=== PATIENT | male | born 1960 | race Caucasian/White ===

== ENCOUNTER 2016-07-06 23:10 | Emergency (ER) | payer MEDICARE ==
[~2016-07-06 23:10] MED LIST: FENTANYL 25 MCG TP; METHADONE10 MG PO; NO HOME MEDICATIONS; PREDNISONE10 MG PO; PREDNISONE20 M1 PO; ZYRTEC10 MG PO
== END 2016-07-07 00:52 | disposition home or self-care (01) ==
LOC: ED 23:10
DX: M50.30 Other cervical disc degeneration, unspecified cervical region (principal); M54.10 Radiculopathy, site unspecified; G62.9 Polyneuropathy, unspecified
CPT/HCPCS: J1885; J2930

== ENCOUNTER 2016-07-31 12:43 | Emergency (ER) | payer MEDICARE ==
[2016-07-31] MEDS ORDERED: KETOROLAC10 MG PO (14:13)
[2016-07-31 14:22] VITALS: BP 114/57
== END 2016-07-31 14:17 | disposition home or self-care (01) ==
LOC: ED 12:43
DX: R07.9 Chest pain, unspecified (principal); M94.0 Chondrocostal junction syndrome [Tietze]; F17.210 Nicotine dependence, cigarettes, uncomplicated
CPT/HCPCS: J1885

== ENCOUNTER 2018-03-09 07:11 | Emergency (ER) | payer MEDICARE ==
[~2018-03-09] VITALS: Ht 180.3 cm; Wt 113.6 kg
[~2018-03-09 07:11] MED LIST changes: +KETOROLAC10 MG PO
[2018-03-09 08:19] LABS: EOS # 0.4 (0.04-0.40); EOS % 3.6 % (0.0-4.0); HEMATOCRIT 44.5 % (42.0-52.0); HEMOGLOBIN 14.7 g/dL (13.5-18.0); LYMPH# 2.9 (1.50-4.00); MEAN CELL VOLUME 92 fl (78-100); MEAN CORPUSCULAR HEMOGLOBIN 31 pg (27-31); MEAN CORPUSCULAR HGB CONC 33 g/dL (33-37); MONO # 1.2 (0.20-0.80); NEU # 7.4 (1.40-6.50); PLATELET COUNT 318 K/mm3 (130-400); RED BLOOD COUNT 4.82 M/mm3 (4.20-5.60); RED CELL DISTRIBUTION WIDTH 13.6 % (11.5-14.5); WHITE BLOOD COUNT 12.1 K/mm3 (4.8-10.8)
[2018-03-09 08:32] LABS: ALBUMIN 4.2 g/dL (3.5-5.0); ALT/SGPT 70 U/L (21-72); AST-SGOT 56 U/L (17-59); CARBON DIOXIDE 26 mmol/L (22-30); GLUCOSE 158 mg/dL (75-110); POTASSIUM 4.5 mmol/L (3.6-5.0); SODIUM 136 mmol/L (137-145); TOTAL BILIRUBIN 0.6 mg/dL (0.2-1.3); TOTAL PROTEIN 7.8 g/dL (6.3-8.2)
[2018-03-09 08:41] LABS: ALCOHOL IN-HOUSE < 10 mg/dL
[2018-03-09] MEDS ORDERED: VIBRAMYCIN HYC100 MG PO (09:36)
[2018-03-09] MEDS ORDERED: NORCO 325 MG-51 TA1 PO (09:36)
[2018-03-09 10:58] VITALS: BP 118/64
== END 2018-03-09 10:58 | disposition home or self-care (01) ==
LOC: ED 07:11
PROVIDERS: Nurse Practitioner Primary Care
DX: S91.331A Puncture wound without foreign body, right foot, initial encounter (principal); W45.0XXA Nail entering through skin, initial encounter; W18.41XA Slipping, tripping and stumbling without falling due to stepping on object, initial encounter; Y93.9 Activity, unspecified; Y92.89 Other specified places as the place of occurrence of the external cause; Y99.9 Unspecified external cause status; R07.89 Other chest pain
CPT/HCPCS: J1885

== ENCOUNTER 2019-11-10 12:32 | Emergency (ER) | payer MEDICARE ==
[~2019-11-10] VITALS: Ht 172.7 cm; Wt 130.9 kg
[~2019-11-10 12:32] MED LIST changes: +NORCO 325 MG-51 TA1 PO; +VIBRAMYCIN HYC100 MG PO
[2019-11-10 13:38] LABS: BASO # 0.1 (0.02-0.10); EOS # 0.5 (0.04-0.40); EOS % 3.7 % (0.0-4.0); HEMATOCRIT 45.6 % (42.0-52.0); HEMOGLOBIN 14.9 g/dL (13.5-18.0); LYMPH# 4.4 (1.50-4.00); MEAN CELL VOLUME 91 fl (78-100); MEAN CORPUSCULAR HEMOGLOBIN 30 pg (27-31); MEAN CORPUSCULAR HGB CONC 33 g/dL (33-37); MEAN PLATELET VOLUME 9.4 fl (7.4-10.4); MONO # 1.1 (0.20-0.80); NEU # 6.5 (1.40-6.50); PLATELET COUNT 304 K/mm3 (130-400); RED BLOOD COUNT 4.99 M/mm3 (4.20-5.60); RED CELL DISTRIBUTION WIDTH 13.5 % (11.5-14.5); WHITE BLOOD COUNT 12.6 K/mm3 (4.8-10.8)
[2019-11-10 13:43] LABS: ALBUMIN 3.9 g/dL (3.4-4.8)
[2019-11-10 13:44] LABS: SODIUM 141 mmol/L (136-145)
[2019-11-10 13:45] LABS: CALCIUM 9.3 mg/dL (8.3-10.5)
[2019-11-10 13:46] LABS: GLUCOSE 150 mg/dL (75-110); TOTAL PROTEIN 7.5 g/dL (6.2-8.1)
[2019-11-10 13:47] LABS: CARBON DIOXIDE 23 mmol/L (23-31)
[2019-11-10 13:48] LABS: TOTAL BILIRUBIN 0.3 mg/dL (0.2-1.2)
[2019-11-10 13:51] LABS: AST-SGOT 40 U/L (5-34)
[2019-11-10 13:52] LABS: ALT/SGPT 59 U/L (0-55)
[2019-11-10 14:09] LABS: D-DIMER 0.68 mg/L FEU (0.15-0.50)
[2019-11-10 14:12] LABS: TROPONIN-I < 0.03 ng/mL (<0.030)
[2019-11-10 16:25] VITALS: BP 166/82
== END 2019-11-10 16:25 | disposition home or self-care (01) ==
LOC: ED 12:32
PROVIDERS: Nurse Practitioner Primary Care
DX: R07.89 Other chest pain (principal); Z20.828 Contact with and (suspected) exposure to other viral communicable diseases; Z86.73 Personal history of transient ischemic attack (TIA), and cerebral infarction without residual deficits; Z87.891 Personal history of nicotine dependence
CPT/HCPCS: Q9967